=== PATIENT | female | born 1960 | race Caucasian/White ===

== ENCOUNTER 2024-03-02 16:12 | Outpatient (CLI) | payer MEDICAID ==
[~2024-03-02 16:12] MED LIST: AMIT25TA9 PO; ATEN50TA PO; CALC-212 PO; CHOL400C8 PO; CINN1CAP PO; CYAN1TAB41 PO; DOXY25TA51 PO; FLAX10007 PO; HYDR12.5 PO; IBUP-1984 PO; LIDO30CR TP; MAGN400C PO; MECL25TA3 PO; MELA3TAB39 PO; MULT1TAB20 PO; NITR0.4T SL; SENN-270 PO; VITC500T PO; ZINC25LO PO; [UNRECOGNIZED DRUG - CODE] PO
== END 2024-03-02 23:59 | disposition home or self-care (01) ==
LOC: RAD 16:12
PROVIDERS: ATTEND Family Medicine
DX: R06.02 Shortness of breath (principal)
CPT/HCPCS: 71046